=== PATIENT | female | born 1935 | race Caucasian/White ===

== ENCOUNTER → 2016-04-26 | Outpatient (CLI) | payer OTHER ==
[~2016-04-26] MED LIST: ACETAMINOPHEN325 M1 PO; CATHFLO ACT2 MG/VIAL INJECTION; CIPRO500 MG PO; DEEP SEA NASAL44 M1 NASAL; ENOXAPARIN40 MG/0.1 SUBQ; ESTRACE1 TUBE VAG; FLUSH IV; K-DUR 20 MEQ T20 MEQ PO; LORTAB 7.5-3251 EACH PO; MORPHINE 44 MG/1 ML IV PUSH; NEXIUM40 MG PO; NORVASC5 MG PO; ONDANSETRON HCL4 M1 IV PUSH
== END ==
LOC: HYPER 07:04
DX: L97.812 Non-pressure chronic ulcer of other part of right lower leg with fat layer exposed (principal); B96.5 Pseudomonas (aeruginosa) (mallei) (pseudomallei) as the cause of diseases classified elsewhere; Z85.820 Personal history of malignant melanoma of skin; Z87.891 Personal history of nicotine dependence

== ENCOUNTER → 2016-07-28 | Outpatient (CLI) | payer OTHER | LOC: RAD 03:59 | DX: Z12.31 Encounter for screening mammogram for malignant neoplasm of breast (principal) ==

== ENCOUNTER → 2018-01-15 | Outpatient (CLI) | payer OTHER | LOC: HYPER 07:13 | DX: S81.811A Laceration without foreign body, right lower leg, initial encounter (principal); M06.9 Rheumatoid arthritis, unspecified; I73.00 Raynaud's syndrome without gangrene; Z87.891 Personal history of nicotine dependence; Z85.828 Personal history of other malignant neoplasm of skin; X58.XXXA Exposure to other specified factors, initial encounter; Y93.89 Activity, other specified; Y92.89 Other specified places as the place of occurrence of the external cause; Y99.8 Other external cause status ==

== ENCOUNTER → 2018-01-22 | Outpatient (CLI) | payer OTHER | LOC: HYPER 07:08 | DX: S81.811D Laceration without foreign body, right lower leg, subsequent encounter (principal); S20.369 Insect bite (nonvenomous) of unspecified front wall of thorax; M06.9 Rheumatoid arthritis, unspecified; K21.9 Gastro-esophageal reflux disease without esophagitis; Z87.891 Personal history of nicotine dependence; Z85.828 Personal history of other malignant neoplasm of skin; X58.XXXD Exposure to other specified factors, subsequent encounter ==